=== PATIENT | female | born 1985 ===

== ENCOUNTER 2021-11-07 09:13 | Outpatient (CLI) | payer OTHER | END 2021-11-07 10:30 | disposition home or self-care (01) | LOC: PRENATAL 09:13 | PROVIDERS: ATTEND Obstetrics & Gynecology Maternal & Fetal Medicine | DX: O99.891 Other specified diseases and conditions complicating pregnancy (principal); O09.299 Supervision of pregnancy with other poor reproductive or obstetric history, unspecified trimester ==